=== PATIENT | female | born 2005 | race Caucasian/White ===

== ENCOUNTER 2025-02-21 13:58 | Emergency (ER) | payer OTHER ==
[~2025-02-21] VITALS: Ht 165.1 cm; Wt 79.4 kg
[2025-02-21 15:20] LABS: BASO # 0.0 10*3/uL (0.0-0.1); BASO % 0.3 % (0.0-1.0); EOS # 0.0 10*3/uL (0.0-0.4); EOS % 0.3 % (1.0-4.0); MEAN CELL VOLUME 89.2 fl (81.0-99.0); MEAN CORPUSCULAR HGB 29.0 pg (27.0-31.0); MEAN PLATELET VOLUME 9.1 fl (9.6-12.3); MONO # 0.4 10*3/uL (0.1-1.0); MONO % 5.0 % (3.0-9.0); NEUT # 6.1 10*3/uL (2.3-7.9); NEUT % 70.5 % (47.0-73.0); NUCLEATED RED BLOOD CELL 0.0 % (0.0-0.0); NUCLEATED RED BLOOD CELL 0.0 10*3/uL (0.0-0.0); PLATELET COUNT AUTOMATED 268 10*3/uL (130-400); RED CELL DISTRI WIDTH 12.4 % (0-14.5)
[2025-02-21 15:39] LABS: BILIRUBIN Negative (Negative); BLOOD Negative (Negative); CLARITY Clear (Clear); COLOR Yellow (Yellow); KETONE Negative (Negative); LEUKO ESTERASE Negative (Negative); NITRITE Negative (Negative); PH 6.5 (4.5-8.0); SPECIFIC GRAVITY <= 1.005 (1.001-1.030); UROBILINOGEN 0.2 E.U./dl (0.0-1.0)
[2025-02-21 15:40] LABS: BUN 9 mg/dl (9-23); SGPT/ALT 25 U/L (5-49)
[2025-02-21 15:43] LABS: BETA-HCG, QUANT < 3.0 mIU/mL (3-10)
[2025-02-21 15:47] LABS: RBC 0-2 rbc/hpf (0-2)
[2025-02-21 15:48] LABS: BACTERIA TRACE; EPITHELIAL CELLS 0-2; WBC 0-2 wbc/hpf (0-5)
[2025-02-21] MEDS ORDERED: REGLAN10 M1 PO (18:10)
[2025-02-21] MEDS ORDERED: Ondansetron4 MG PO (18:10)
[2025-02-21] MEDS ORDERED: Ondansetron Hydrochloride 4 MG TAB PO ONE (18:15)
== END 2025-02-21 18:14 | disposition home or self-care (01) ==
LOC: ED 13:58
PROVIDERS: Emergency Medicine
DX: K59.00 Constipation, unspecified (principal); R14.0 Abdominal distension (gaseous); R10.2 Pelvic and perineal pain

== ENCOUNTER 2025-06-04 15:19 | Emergency (ER) | payer OTHER ==
[~2025-06-04 15:19] MED LIST: Ondansetron4 MG PO; REGLAN10 M1 PO
== END 2025-06-04 21:16 | disposition left against medical advice (07) ==
LOC: ED 15:19
DX: R42 Dizziness and giddiness (principal); Z53.21 Procedure and treatment not carried out due to patient leaving prior to being seen by health care provider